=== PATIENT | male | born 1955 | race Caucasian/White ===

== ENCOUNTER 2024-03-10 17:38 | Emergency (ER) | payer MEDICARE, OTHER, SELFPAY ==
[2024-03-10 17:46] VITALS: BP 149/86; PULSE 67; TEMP 36.8; O2SAT 97; BMI 32.3
[2024-03-10] MEDS: DEXAMETHASONE SOD PHOS 10 MG/ML VIAL INJ (18:24)
[2024-03-10 18:34] LABS: Basophils Percent Auto 0.3 % (0.2-2.0); Hematocrit 44.7 % (42.0-54.0); Immature Granulocytes Abs Auto 0.02 10^3/uL (0.00-0.03); Immature Granulocytes Pct Auto 0.2 % (0.0-0.5); Lymphocytes Percent Auto 34.4 % (20.5-60.0); Mean Corpuscular HGB Conc 33.6 g/dL (29.9-35.2); Mean Corpuscular Hemoglobin 30.4 pg (25.9-34.0); Mean Corpuscular Volume 90.7 fL (80.0-94.0); Mean Platelet Volume 9.9 fL (9.5-13.5); Monocytes Percent Auto 11.4 % (1.7-12.0); Neutrophils Absolute Auto 4.7 10^3/uL (1.4-6.5); Neutrophils Percent Auto 53.7 % (43.0-75.0); Platelet Count 221 10^3/uL (150-450); Red Blood Count 4.93 10^6/uL (4.70-6.10); Red Cell Distribution Width 14.1 % (11.0-15.0); White Blood Count 8.8 10^3/uL (4.0-11.0)
[2024-03-10 18:39] LABS: Anion Gap 13.1; Calcium 9.6 mg/dL (8.5-10.1); Carbon Dioxide 27.3 mmol/L (21.0-32.0); Chloride 105 mmol/L (98-107); Estimated GFR (African America >60 (>=60); Estimated GFR (Non-African Ame 56 (>=60); Glucose 109 mg/dL (74-106); Potassium 4.4 mmol/L (3.5-5.1); Sodium 141 mmol/L (136-145)
[2024-03-10 19:06] VITALS: BP 142/85; PULSE 66; O2SAT 97
[2024-03-10] MEDS: CLINDAMYCIN PHOSPHATE/D5W 600 MG/50 ML PIGGYBACK 100 MG IV (20:00)
--- NOTE | 2024-03-10 20:10 | ED.DENTAL1 ---
HPI - Dental/Oral General Chief complaint: Dental/Oral Stated complaint: TOOTHACHE, RINGING IN EARS Time Seen by Provider: 03/10/24 17:49 Source: patient Mode of arrival: walk-in Limitations: no limitations History of Present Illness HPI Narrative: 68-year-old male presents to the emergency department with with complaint of dental pain, facial swelling. Onset this past Thursday. States was started on Augmentin by his dentist, did have some improvement until last night when things became worse. States recent history of cardiac catheterization, stents x 5. Has been placed on Brilinta. Dentist reluctant to extract the tooth at this time. Locates pain, tenderness to tooth #12. Denies any fever, chills, difficulty swallowing, trismus. Quality: pressure Severity:?Moderate Timing:?As above, constant, worsening Context: Normal setting and activity? Modifying factors:?Pain worse with palpation. Not better despite Augmentin Associated symptoms: as above Related Data Home Medications ?Medication ?Instructions ?Recorded ?Confirmed amlodipine 10 mg tablet 10 mg PO DAILY 03/10/24 03/10/24 atorvastatin 40 mg tablet 40 mg PO BEDTIME 03/10/24 03/10/24 carvedilol 3.125 mg tablet 3.125 mg PO BID 03/10/24 03/10/24 ezetimibe 10 mg tablet 10 mg PO BEDTIME 03/10/24 03/10/24 hydrocodone 5 mg-acetaminophen 325 1 tab PO Q6H PRN pain 03/10/24 03/10/24 mg tablet irbesartan 300 mg tablet 300 mg PO DAILY 03/10/24 03/10/24 ticagrelor 90 mg tablet (Brilinta) 90 mg PO BID 03/10/24 03/10/24 Previous Rx's ?Medication ?Instructions ?Recorded clindamycin HCl 300 mg capsule 300 mg PO Q6H 7 days #28 caps 03/10/24 Allergies Allergy/AdvReac Type Severity Reaction Status Date / Time No Known Drug Allergies Allergy Verified 03/10/24 17:43 Review of Systems ROS Narrative CONST: Denies fever, chills HENT: +dental problem, facial swelling.? Denies congestion, ear pain, mouth sores, rhinorrhea EYES: Denies eye discharge, eye pain SKIN: Denies color change Exam Narrative Exam Narrative: Vital signs noted Nurses notes reviewed CONST: Nontoxic, well appearing, well nourished, in no distress.? No diaphoresis.?? HENT: normocephalic, atraumatic.? Normal hearing.? Normal appearing ext ears, canals, TM's.? No nasal discharge.? MOUTH/THROAT: + caries throughout of varying levels.? Tooth #12 is tender.? Teeth 14-16 missing. No surrounding swelling, fluctuance.? + left lax facial swelling. No palpable abscess, trismus.? Patient maintaining own secretions.? Moist mucous membranes, no increased oropharyngeal erythema, edema, exudate.? No submandibular or submental tenderness.? No tenderness or elevation of the roof of the mouth. EYES: clear, no injections, discharge NECK: supple, no lymphadenopathy NEURO: A&Ox3 SKIN: warm, dry PSYCHIATRIC: normal mood and affect Constitutional Vital Signs, click to edit/add: Last Vital Signs Temp 98.2 F 03/10/24 17:46 Pulse 66 03/10/24 19:06 Resp 20 03/10/24 19:06 BP 142/85 H 03/10/24 19:06 Pulse Ox 97 03/10/24 19:06 O2 Del Method Room Air 03/10/24 19:06 Course Reevaluation(s) Reevaluation #1: Discussed with patient and results, plan, and disposition. They are agreeable with plan for Time: 20:56 Vital Signs Vital signs: Vital Signs Temperature 98.2 F 03/10/24 17:46 Pulse Rate 67 03/10/24 17:46 Respiratory Rate 18 03/10/24 17:46 Blood Pressure 149/86 H 03/10/24 17:46 Pulse Oximetry 97 03/10/24 17:46 Oxygen Delivery Method Room Air 03/10/24 17:46 Temperature 98.2 F 03/10/24 17:46 Pulse Rate 66 03/10/24 19:06 Respiratory Rate 20 03/10/24 19:06 Blood Pressure 142/85 H 03/10/24 19:06 Pulse Oximetry 97 03/10/24 19:06 Oxygen Delivery Method Room Air 03/10/24 19:06 MDM - Dental/Oral MDM Narrative Medical decision making narrative: This is a pleasant 68-year-old male who presents to the emergency department with with complaint of dental pain, left-sided facial swelling. Initially started having pain to tooth #12 on Thursday. Went to see dentist, started on Augmentin. Unable to have tooth removed at this time as he is on Brilinta due to recent heart stenting. Had been improving until yesterday evening when pain and swelling worsened. Was advised to come to the emergency department for IV antibiotics. Denies any difficulty swallowing, trismus, fevers, chills. On arrival, afebrile, vital signs stable On exam, nontoxic, well-appearing patient in no distress. There is some swelling to the left maxillary region with some loss of nasolabial fold. There are dental caries. He has tenderness to tooth #12. No palpable or observable abscess. No increased gingival swelling or erythema. Patient maintaining own secretions. Favor dental infection Cachorro's angina less likely as he does not have tenderness to the submental or submandibular regions. Abscess less likely based on history and physical exam. Patient given dose of IV clindamycin, Decadron during ED course. There was some improvement of swelling on reevaluation Labs reveal no leukocytosis, anemia, electrolyte imbalance, renal impairment Disposition ? The patient was discharged. Plan: Patient will be discharged to home. Condition at time of disposition: stable Patient will be started on p.o. clindamycin. He will stop Augmentin. Advised to follow up with his dentist. Advised to return for any worsening and/or development of new, concerning signs or symptoms PLEASE NOTE: Portions of the medical record may have been produced using electronic internal control specialist and may contain errors with respect to translation of words which may not have been identified prior to finalization of the chart. Lab Data Attestation: I reviewed the patient's lab results. Labs: Lab Results 03/10/24 Range/Units 18:24 WBC 8.8 (4.0-11.0) 10^3/uL RBC 4.93 (4.70-6.10) 10^6/uL Hgb 15.0 (14.0-18.0) g/dL Hct 44.7 (42.0-54.0) % MCV 90.7 (80.0-94.0) fL MCH 30.4 (25.9-34.0) pg MCHC 33.6 (29.9-35.2) g/dL RDW 14.1 (11.0-15.0) % Plt Count 221 (150-450) 10^3/uL MPV 9.9 (9.5-13.5) fL Neut % (Auto) 53.7 (43.0-75.0) % Lymph % (Auto) 34.4 (20.5-60.0) % Hancock % (Auto) 11.4 (1.7-12.0) % Eos % (Auto) 0.0 L (0.9-7.0) % Baso % (Auto) 0.3 (0.2-2.0) % Neut # (Auto) 4.7 (1.4-6.5) 10^3/uL Lymph # (Auto) 3.0 (1.2-3.8) 10^3/uL Hancock # (Auto) 1.0 H (0.3-0.8) 10^3/uL Eos # (Auto) 0.0 (0.0-0.7) 10^3/uL Baso # (Auto) 0.0 (0.0-0.1) 10^3/uL Abs Immat Gran (auto) 0.02 (0.00-0.03) 10^3/uL Imm/Tot Granulo (auto) 0.2 (0.0-0.5) % Sodium 141 (136-145) mmol/L Potassium 4.4 (3.5-5.1) mmol/L Chloride 105 (98-107) mmol/L Carbon Dioxide 27.3 (21.0-32.0) mmol/L Anion Gap 13.1 BUN 19.0 H (7.0-18.0) mg/dL Creatinine 1.27 (0.70-1.30) mg/dL Est GFR ( Amer) >60 (>=60) Est GFR (Non-Af Amer) 56 L (>=60) BUN/Creatinine Ratio 15.0 Glucose 109 H (74-106) mg/dL Calcium 9.6 (8.5-10.1) mg/dL Discharge Plan Discharge Stand Alone Forms: Portal Instructions Chief Complaint: Dental/Oral Clinical Impression: Odontalgia, Dental infection Patient Disposition: Home, Self-Care Time of Disposition Decision: 20:53 Condition: Good Mode of Transportation: Private Vehicle Prescriptions / Home Meds: New clindamycin HCl 300 mg capsule 300 mg PO Q6H 7 Days Qty: 28 0RF Discontinued amoxicillin-pot clavulanate 875-125 mg tablet 1 tab PO Q12H No Action amlodipine 10 mg tablet 10 mg PO DAILY atorvastatin 40 mg tablet 40 mg PO BEDTIME carvedilol 3.125 mg tablet 3.125 mg PO BID ezetimibe 10 mg tablet 10 mg PO BEDTIME hydrocodone-acetaminophen 5-325 mg tablet 1 tab PO Q6H PRN (Reason: pain) irbesartan 300 mg tablet 300 mg PO DAILY Brilinta 90 mg tablet 90 mg PO BID Print Language: Uzbek Instructions: Toothache (ED) Additional Instructions: STOP AUGMENTIN Referrals: KIMI MCCONNELL [Primary Care Provider] - 1 week Discharge Date/Time: 03/10/24 21:06
== END 2024-03-10 21:06 | disposition home or self-care (01) ==
PROVIDERS: Physician Assistant; Emergency Provider Emergency Medicine; PCP Family Medicine
DX: K04.7 Periapical abscess without sinus (principal); K08.89 Other specified disorders of teeth and supporting structures; Z79.899 Other long term (current) drug therapy
CPT/HCPCS: 36415; 80048; 85025; 96374; 96375; 99284; J1100